=== PATIENT | female | born 1985 | race Two or more races ===

== ENCOUNTER 2024-02-19 08:48 | Emergency (ER) | payer OTHER ==
[~2024-02-19] VITALS: Ht 154.9 cm; Wt 65.8 kg
[2024-02-19] MEDS ORDERED: MAXITROL EYE DRO5 ML OP (10:53)
[2024-02-19] MEDS ORDERED: CEFTRIAXONE SODIUM 1,000 MG VIAL IM ONE (11:00)
[2024-02-19] MEDS ORDERED: METHYLPREDNISOLONE SOD SUCC 40 MG VIAL IM ONE (11:00)
== END 2024-02-19 11:42 | disposition home or self-care (01) ==
LOC: ER 08:50
DX: H00.019 Hordeolum externum unspecified eye, unspecified eyelid (principal); Z88.8 Allergy status to other drugs, medicaments and biological substances

== ENCOUNTER 2024-03-09 08:53 | Emergency (ER) | payer OTHER ==
[~2024-03-09] VITALS: Ht 154.9 cm; Wt 63.5 kg
[~2024-03-09 08:53] MED LIST changes: -DOXYCYCLINE HY100 M3 PO; -PYRIDIUM DS200 MG PO
[2024-03-09] MEDS ORDERED: PHENAZOPYRIDINE HCL 100 MG TABLET PO ONE (11:00)
[2024-03-09] MEDS ORDERED: ACETAMINOPHEN 500 MG GEL..CAP PO ONE (11:00)
[2024-03-09 11:52] LABS: HEMATOCRIT 43.2 % (36.0-45.00); HEMOGLOBIN 14.7 g/dL (12.0-15.00); MEAN CORPUSCULAR HEMOGLOBIN 30.9 pg (27.00-32.0); PLATELET COUNT 387 K/uL (150-450); RED BLOOD COUNT 4.74 M/uL (4.00-6.00); RED CELL DISTRIBUTION WIDTH 14.4 % (11.5-14.5)
[2024-03-09 12:11] LABS: PH,URINE 6.5 (5.0-8.0); URINE APPEARANCE Clear; URINE BILIRRUBIN Negative (NEGATIVE); URINE BLOOD Small; URINE COLOR Yellow; URINE GLUCOSE Negative (NEGATIVE); URINE KETONE Negative (NEGATIVE); URINE LEUKOCYTE Negative; URINE NITRATE Negative; URINE PROTEIN Negative (NEGATIVE); URINE UROBILINOGEN 0.2 E.U./dl
[2024-03-09 12:15] LABS: URINE BACTERIA 454.7 uL (0.0-1933); URINE EPITHELIAL CELLS 7.1 uL (0.0-38.8); URINE RBC 2.4 uL (0.0-20.8); URINE WBC 7.7 uL (0.0-23.2)
[2024-03-09 12:21] LABS: CALCIUM 9.2 mg/dL (8.5-10.1); CREATININE SERUM 0.65 mg/dL (0.55-1.02); GFR 100.95; POTASSIUM 4.19 mEq/L (3.5-5.1)
[2024-03-09] MEDS ORDERED: PYRIDIUM DS200 MG PO (15:40)
[2024-03-09] MEDS ORDERED: DOXYCYCLINE HY100 M3 PO (15:40)
[2024-03-09] MEDS ORDERED: CEFTRIAXONE SODIUM 1,000 MG VIAL IV ONE (15:45)
== END 2024-03-09 16:14 | disposition home or self-care (01) ==
LOC: ER 08:55 → EMR PED 08:57 → ER 08:57
PROVIDERS: General Practice
DX: N39.0 Urinary tract infection, site not specified (principal); Z88.8 Allergy status to other drugs, medicaments and biological substances

== ENCOUNTER → 2024-03-09 | Emergency (ER) | payer OTHER ==
[~2024-03-09] VITALS: Ht 157.5 cm; Wt 68.0 kg
[~2024-03-09] MED LIST: DOXYCYCLINE HY100 M3 PO; MAXITROL EYE DRO5 ML OP; PYRIDIUM DS200 MG PO
== END | disposition left against medical advice (07) ==
LOC: ER 01:49
DX: Z53.21 Procedure and treatment not carried out due to patient leaving prior to being seen by health care provider (principal)